=== PATIENT | male | born 1950 | race Caucasian/White ===

== ENCOUNTER 2019-03-05 09:47 | Emergency (ER) | payer SELFPAY, BC ==
[2019-03-05 10:41] LABS: URINE BLOOD (Dip) POC Trace-intact (NEGATIVE); URINE GLUCOSE (Dip) POC Negative (NEGATIVE); URINE KETONES (Dip) POC Negative (NEGATIVE); URINE LEUKOCYTE EST (Dip) POC Negative (NEGATIVE); URINE NITRITE (Dip) POC Negative (NEGATIVE); URINE TOTAL PROTEIN POC Negative (NEGATIVE)
[2019-03-05] MEDS: IBUPROFEN 600 MG TAB PO (10:54)
== END 2019-03-05 12:07 | disposition home or self-care (01) ==
LOC: FTE 12:07
DX: M54.5 Low back pain (principal)
CPT/HCPCS: 74176; 81003; 99284-25